=== PATIENT | female | born 1995 | race Hispanic/Latino ===

== ENCOUNTER 2019-07-11 20:19 | Emergency (ER) | payer MEDICAID ==
[~2019-07-11 20:19] MED LIST: IBUP-2070 PO; IRON-10 PO
[2019-07-11 20:50] LABS: APPEARANCE,URINE Clear (CLEAR); BILIRUBIN,URINE Negative (NEGATIVE); COLOR,URINE Yellow (YELLOW); GLUCOSE, URINE (UA) Negative (NEGATIVE); KETONES,URINE Negative (NEGATIVE); LEUKOCYTE ESTERASE ,URINE Moderate (NEGATIVE); NITRATE,URINE Negative (NEGATIVE); OCCULT BLOOD,URINE Negative (NEGATIVE); PROTEIN,URINE Negative (NEGATIVE)
[2019-07-11 21:04] LABS: BACTERIA,URINE Few /HPF (None Seen)
[2019-07-11 21:05] LABS: MUCUS,URINE Moderate LPF (None Seen)
== END 2019-07-11 21:47 | disposition home or self-care (01) ==
LOC: EDH 20:19
DX: O23.31 Infections of other parts of urinary tract in pregnancy, first trimester (principal); Z3A.01 Less than 8 weeks gestation of pregnancy
CPT/HCPCS: 81001

== ENCOUNTER 2020-01-03 16:14 | Observation (INO) | payer MEDICAID ==
[~2020-01-03] VITALS: Ht 167.6 cm; Wt 107.5 kg
[2020-01-03 17:18] VITALS: BP 120/69
== END 2020-01-03 17:30 | disposition home or self-care (01) ==
LOC: LDH 16:14
PROVIDERS: ADMIT Obstetrics & Gynecology; ATTEND Obstetrics & Gynecology
DX: O26.893 Other specified pregnancy related conditions, third trimester (principal); R10.2 Pelvic and perineal pain; R10.9 Unspecified abdominal pain; Z3A.31 31 weeks gestation of pregnancy
CPT/HCPCS: G0378

== ENCOUNTER 2020-02-22 21:02 | Inpatient (IN) | payer MEDICAID ==
[~2020-02-22] VITALS: Ht 167.6 cm; Wt 105.2 kg
[2020-02-22 22:10] VITALS: BP 120/70
[2020-02-22 22:27] LABS: APPEARANCE,URINE Clear (CLEAR); BILIRUBIN,URINE Negative (NEGATIVE); COLOR,URINE Yellow (YELLOW); GLUCOSE, URINE (UA) Negative (NEGATIVE); KETONES,URINE 15 mg/dL (NEGATIVE); LEUKOCYTE ESTERASE ,URINE Moderate (NEGATIVE); NITRATE,URINE Negative (NEGATIVE); OCCULT BLOOD,URINE Negative (NEGATIVE); PROTEIN,URINE Trace mg/dL (NEGATIVE)
[2020-02-22 22:37] LABS: BACTERIA,URINE Rare /HPF (None Seen); CALCIUM OXALATE CRYSTALS,UR Rare /LPF (None Seen); RBC,URINE None Seen /HPF (0-1); SQUAMOUS EPITHELIAL CELL,UR Moderate /HPF (0-2); WBC,URINE 0-1 /HPF (0-1)
[2020-02-22 23:04] LABS: HEMATOCRIT 29.4 % (36-48); MEAN CORPUSCULAR HEMOGLOBIN 26.3 pg (27.0-33.0); MEAN CORPUSCULAR VOLUME 82.4 fL (79-99); RED BLOOD CELL COUNT(AUTO) 3.57 MIL/uL (4.00-5.50); RED CELL DISTRIBUTION WIDTH 15.9 % (11.0-15.5); WHITE BLOOD COUNT (AUTO) 9.9 K/uL (4.8-10.8)
[2020-02-22] MEDS: LACTATED RINGERS 1000ML 1,000 ML IV PRN (23:58)
[2020-02-23] VITALS (11 sets, daily range): BP systolic 101–149; BP diastolic 58–80
[2020-02-23] MEDS ORDERED: OXYTOCIN-LR 20 UNITS/1000 ML 1,000 ML IV ONE ×2 (03:54→11:25)
[2020-02-23] MEDS ORDERED: OXYTOCIN 10 USP UNITS/ML 20 UNIT in LACTATED RINGERS 1000ML 1,000 ML IV SCH (04:00)
[2020-02-23] MEDS ORDERED: MEPERIDINE-PF 50 MG/ML SYG IVP ONE (05:15)
[2020-02-23] MEDS: PROMETHAZINE HCL 25 MG/ML 1ML AMPULE IM SCH (05:42)
[2020-02-23] MEDS ORDERED: LIDOCAINE HCL 1% 20 ML VIAL ONE (07:09)
[2020-02-23] MEDS ORDERED: BENZOCAINE/LANOLIN/ALOE VERA 60 ML AEROSOL TP PRN (08:00)
[2020-02-23] MEDS ORDERED: MEASLES/MUMPS/RUBELLA VACCINE, LIVE 0.5 ML/VIAL SQ PRN (08:00)
[2020-02-23] MEDS ORDERED: ACETAMINOPHEN 325 MG TAB PO PRN (08:00)
[2020-02-23] MEDS ORDERED: DIPH,PERTUSS(ACELL),TET VAC/PF 0.5 ML VIAL IM PRN (08:00)
[2020-02-23] MEDS ORDERED: WITCH HAZEL 1 PAD TP PRN (08:00)
[2020-02-23] MEDS ORDERED: LANOLIN 30GM OINTMENT TP PRN (08:00)
[2020-02-23] MEDS ORDERED: IBUPROFEN 600 MG TABLET ONE (08:03)
[2020-02-23] MEDS: DOCUSATE SODIUM 100 MG CAP PO SCH ×2 (08:11→20:49)
--- NOTE | 2020-02-23 09:00 | NUR ---
2 HOUR [id number] MLS
[2020-02-23] MEDS: ACETAMINOPHEN-CODEINE 300/30MG TAB PO PRN (11:23)
[2020-02-23] MEDS: IBUPROFEN 600 MG TABLET PO PRN (20:49)
[2020-02-24] MEDS: ACETAMINOPHEN-CODEINE 300/30MG TAB PO PRN (01:23)
[2020-02-24 04:03] VITALS: BP 114/58
[2020-02-24] MEDS: PROMETHAZINE HCL 25 MG/ML 1ML AMPULE IM SCH (05:15)
[2020-02-24 05:37] LABS: MEAN CORPUSCULAR HEMOGLOBIN 26.1 pg (27.0-33.0); MEAN CORPUSCULAR VOLUME 87.1 fL (79-99); PLATELET COUNT (AUTO) 164 K/uL (130-400); RED BLOOD CELL COUNT(AUTO) 2.87 MIL/uL (4.00-5.50); RED CELL DISTRIBUTION WIDTH 16.5 % (11.0-15.5); WHITE BLOOD COUNT (AUTO) 8.8 K/uL (4.8-10.8)
--- NOTE | 2020-02-24 06:15 | NUR ---
Communication: Eryn Lopez CNM informed of Lab work result hemoglobin 7.5 and hematocrit of 25.0 patient denies any dizziness. She claimed let patient ambulate no treatment needed.
[2020-02-24 07:13] LABS: HEPATITIS Bs ANTIGEN SCREEN P Negative (Negative)
[2020-02-24 07:38] VITALS: BP 118/72
--- NOTE | 2020-02-24 08:30 | NUR ---
Eryn SAUCEDA CNM ROUNDED AND DISCHARGE ORDER GIVEN FOR PATIENT. IF BABY STAYS, PATIENT COULD STAY UNTIL A.M. PATIENT IS AND PUMPING BREAST.
[2020-02-24] MEDS: DOCUSATE SODIUM 100 MG CAP PO SCH ×2 (08:51→21:17)
[2020-02-24] MEDS: IBUPROFEN 600 MG TABLET PO PRN ×2 (08:55→17:44)
[2020-02-24 11:23] VITALS: BP 121/76
[2020-02-24 16:30] VITALS: BP 117/73
--- NOTE | 2020-02-24 17:44 | NUR ---
C/O HAVING MILD CRAMPING AND WAS MEDICATED WITH MOTRIN.
--- NOTE | 2020-02-24 19:20 | NUR ---
BEDSIDE REPORT GIVEN TO Cami FRIEDMAN LVN AND PATIENT CARE TRANSFERED AT THIS TIME.
[2020-02-24 19:27] VITALS: BP 120/71
[2020-02-25 00:03] VITALS: BP 102/58
[2020-02-25 03:40] VITALS: BP 103/54
[2020-02-25 03:47] VITALS: BP 123/74
[2020-02-25 07:16] VITALS: BP 129/79
[2020-02-25] MEDS: DOCUSATE SODIUM 100 MG CAP PO SCH (08:36)
[2020-02-25] MEDS: IBUPROFEN 600 MG TABLET PO PRN (08:37)
--- NOTE | 2020-02-25 08:50 | NUR ---
DR. BRIDGES ROUNDED AND WAS MADE AWARE OF PATIENT DISCHARGED ON PREVIOUS DAY BUT STAYED SINCE BABY HAD STAYED. ORDER FOR DISCHARGE IN CHART.
[2020-02-25 10:59] VITALS: BP 120/60
--- NOTE | 2020-02-25 12:30 | NUR ---
DISCHARGE INSTRUCTIONS GIVEN AND PATIENT VERBALIZED UNDERSTANDING INSTRUCTIONS AND COVID 19 INFO PROVIDED. SCRIPT FOR HOME PAIN MANAGEMENT AND IRON GIVEN. VERBALIZED UNDERSTANDING DOSAGE AND FREQUENCY OF MEDICATIONS.
--- NOTE | 2020-02-25 13:00 | NUR ---
PATIENT WAS TAKEN VIA W/C CARRYING BABY IN ARMS AND WERE BOTH DISCHARGED TO HER SIGNIFICANT OTHER. PATIENT IS STABLE AND DENIES PAIN.
== END 2020-02-25 13:00 | disposition home or self-care (01) | DRG 560 ==
LOC: LDH 21:50 → WSH 02-23 07:37
PROVIDERS: ADMIT Obstetrics & Gynecology; ATTEND Obstetrics & Gynecology
PROC: 10E0XZZ Delivery of Products of Conception, External Approach (ICD-10-PCS; principal; 2020-02-23)
PROC: 0KQM0ZZ Repair Perineum Muscle, Open Approach (ICD-10-PCS; 2020-02-23)
PROC: 3E0234Z Introduction of Serum, Toxoid and Vaccine into Muscle, Percutaneous Approach (ICD-10-PCS; 2020-02-23)
PROC: 3E0134Z Introduction of Serum, Toxoid and Vaccine into Subcutaneous Tissue, Percutaneous Approach (ICD-10-PCS; 2020-02-23)
DX: O70.1 Second degree perineal laceration during delivery (principal); Z37.0 Single live birth; Z23 Encounter for immunization; Z3A.38 38 weeks gestation of pregnancy
CPT/HCPCS: 36415; 81001; 85027; 86592; 86850; 86900; 86901; 87088; 87340; 90707; 90715; A4351; G0378; J2175; J2550; J2590; J7120